=== PATIENT | male | born 1955 | race Two or more races ===

== ENCOUNTER 2016-12-29 23:56 | Inpatient (IN) | payer MEDICAID ==
[~2016-12-29] VITALS: Ht 182.9 cm; Wt 101.5 kg
[2016-12-30] MEDS ORDERED: ACETAMINOPHEN 325 MG TAB PO ONE (00:15)
[2016-12-30 00:27] LABS: Hematocrit 36.8 % (41.0-53.0); Hemoglobin 12.4 g/dL (13.5-17.5); Mean Corpuscular Hgb Conc. 33.8 g/dL (32.0-36.0); Mean Platelet Volume 7.2 fL (7.4-10.4); Platelet Count (auto) 348 10^3/uL (140-450); Red Cell Distribution Width 13.1 % (11.6-16.0); SUSPECT VIEW TRANSMISSION; White Blood Cell 12.8 10^3/uL (4.4-10.8)
[2016-12-30 00:34] LABS: Myelocytes % 0; Promyelocytes % 0; Reactive Lymphocytes 0
[2016-12-30 00:54] LABS: Albumin 2.3 g/dL (3.4-5.0); BUN/Creatinine Ratio 13.3; Calcium 8.1 mg/dL (8.5-10.1); Potassium 3.6 mmol/L (3.5-5.1)
[2016-12-30 01:00] LABS: Bilirubin, Total 0.8 mg/dL (0.2-1.0)
[2016-12-30 01:13] LABS: Metamyelocytes % 1
[2016-12-30 01:14] LABS: Large Platelets FEW; Platelet Estimate Adequa; RBC Morphology Normal
[2016-12-30 06:30] LABS: Urine Bilirubin Negative (Negative); Urine Color Yellow (Yellow); Urine Glucose Normal (Normal); Urine Mucus FEW (None Seen); Urine Nitrite Negative (Negative); Urine RBC 2 /hpf (0 - 3); Urine Urobilinogen Normal (Negative); Urine pH 6.5 (5.0-8.0)
[2016-12-30 06:31] LABS: Urine Blood 1+ /uL (Negative); Urine Ketone 1+ (Negative)
[2016-12-30] MEDS ORDERED: SODIUM CHLORIDE 0.9% 1,000 ML IV ONE (07:48)
[2016-12-30] MEDS ORDERED: LEVOFLOXACIN 750MG 150 ML IV ONE (08:00)
[2016-12-30] MEDS ORDERED: IPRATROPIUM BROM 0.5 MG/2.5ML INH SOL HHN ONE (08:00)
[2016-12-30] MEDS ORDERED: ALBUTEROL SULF 2.5 MG/0.5ML(0.5%) NEB SOLN HHN ONE (08:00)
[2016-12-30] MEDS ORDERED: methylPREDNISolone SOD SUCC 125 MG/2 ML VL IV ONE (08:00)
[2016-12-30] MEDS ORDERED: SODIUM CHLORIDE 0.9% 1,000 ML IV SCH (08:10)
[2016-12-30] MEDS ORDERED: NITROGLYCERIN 0.4 MG SL TAB SL PRN (08:15)
[2016-12-30] MEDS ORDERED: LORazepam 0.5 MG TAB PO PRN (08:15)
[2016-12-30] MEDS ORDERED: PROMETHAZINE HCL 25 MG/ML 1ML IV PRN (08:15)
[2016-12-30] MEDS ORDERED: ALBUTEROL SULF 2.5 MG/0.5ML(0.5%) NEB SOLN NEB PRN (08:15)
[2016-12-30] MEDS ORDERED: MORPHINE SULF INJ 2 MG/ML SYRINGE 1ML IV PRN ×2 (08:15)
[2016-12-30] MEDS ORDERED: LACTULOSE 20Gm/30ML SOLN PO PRN (08:15)
[2016-12-30] MEDS ORDERED: TEMAZEPAM 15 MG CAP PO PRN (08:15)
[2016-12-30] MEDS ORDERED: ACETAMINOPHEN 500 MG TAB PO PRN (08:15)
[2016-12-30 08:27] LABS: B-Type Natriuretic Peptide 23.86 pg/mL (0-100)
[2016-12-30 08:48] LABS: Temperature: 23.3 C (20.0-25.0)
[2016-12-30] MEDS: AZITHROMYCIN 500MG/D5W 250ML 250 ML IV SCH (10:00)
[2016-12-30] MEDS: ENOXAPARIN SOD 40 MG/0.4 ML SYRINGE SC SCH (10:00)
[2016-12-30] MEDS: SODIUM CHLORIDE 0.9% 1,000 ML IV SCH ×2 (10:06→19:00)
[2016-12-30] MEDS: HYDROcodone-ACET 5/325MG TAB PO PRN (11:04)
[2016-12-30] MEDS ORDERED: IBUP800T24 PO (11:29)
[2016-12-30] MEDS: IPRATROPIUM BROM 0.5 MG/2.5ML INH SOL NEB SCH ×2 (12:00→19:24)
[2016-12-30] MEDS: ALBUTEROL SULF 2.5 MG/0.5ML(0.5%) NEB SOLN NEB SCH ×2 (12:00→19:24)
[2016-12-30 14:10] VITALS: BP 125/63
[2016-12-30] MEDS: cefTRIAXone 1GM/50ML D5W 50 ML IV SCH (15:30)
[2016-12-30 17:00] VITALS: BP 144/90
[2016-12-30 20:34] VITALS: BP 144/90
[2016-12-30 22:00] VITALS: BP 132/82
[2016-12-31] MEDS: SODIUM CHLORIDE 0.9% 1,000 ML IV SCH ×3 (02:06→18:09)
[2016-12-31 05:00] VITALS: BP 118/70
[2016-12-31] MEDS: IPRATROPIUM BROM 0.5 MG/2.5ML INH SOL NEB SCH ×3 (05:51→18:35)
[2016-12-31] MEDS: ALBUTEROL SULF 2.5 MG/0.5ML(0.5%) NEB SOLN NEB SCH ×3 (05:52→18:35)
[2016-12-31 06:15] LABS: Basophils # (auto) 0 uL; Eosinophils # (auto) 0 uL; Hematocrit 34.9 % (41.0-53.0); Hemoglobin 12.1 g/dL (13.5-17.5); Lymphocytes # (auto) 1.4 uL; Lymphocytes % (auto) 8.7 % (10.0-50.0); Mean Corpuscular Hemoglobin 29.8 pg (28.0-32.0); Mean Corpuscular Hgb Conc. 34.8 g/dL (32.0-36.0); Mean Corpuscular Volume 85.6 fL (80.0-100.0); Mean Platelet Volume 7.7 fL (7.4-10.4); Monocytes # (auto) 0.9 uL; Monocytes % (auto) 5.5 % (0.0-12.0); Neutrophils # (auto) 13.4 uL; Neutrophils % (auto) 85.8 % (37.0-80.0); Platelet Count (auto) 396 10^3/uL (140-450); Red Cell Distribution Width 13.8 % (11.6-16.0); White Blood Cell 15.6 10^3/uL (4.4-10.8)
[2016-12-31 06:43] LABS: Albumin 2.1 g/dL (3.4-5.0); BUN/Creatinine Ratio 21.7; Bilirubin, Total 0.4 mg/dL (0.2-1.0); Calcium 8.4 mg/dL (8.5-10.1); Potassium 3.9 mmol/L (3.5-5.1); Total Protein 6.8 g/dL (6.4-8.2)
[2016-12-31 07:18] LABS: Temperature: 22.9 C (20.0-25.0)
[2016-12-31 08:00] VITALS: BP 118/70
[2016-12-31 09:00] VITALS: BP 114/72
[2016-12-31] MEDS: cefTRIAXone 1GM/50ML D5W 50 ML IV SCH (09:10)
[2016-12-31] MEDS: ENOXAPARIN SOD 40 MG/0.4 ML SYRINGE SC SCH (09:14)
[2016-12-31] MEDS: AZITHROMYCIN 500MG/D5W 250ML 250 ML IV SCH (09:48)
[2016-12-31] MEDS: DOXYCYCLINE HYC 100MG/250ML 250 ML IV SCH (11:18)
[2016-12-31 17:12] VITALS: BP 127/96
[2016-12-31] MEDS: BUDESONIDE (INHALATION) 0.5 MG/2 ML NEB NEB SCH (18:35)
[2016-12-31] MEDS: HYDROcodone-ACET 5/325MG TAB PO PRN (21:51)
[2016-12-31 22:07] VITALS: BP 124/75
[2017-01-01] MEDS: ALBUTEROL SULF 2.5 MG/0.5ML(0.5%) NEB SOLN NEB SCH ×4 (00:31→19:15)
[2017-01-01] MEDS: IPRATROPIUM BROM 0.5 MG/2.5ML INH SOL NEB SCH ×4 (00:31→19:15)
[2017-01-01] MEDS: DOXYCYCLINE HYC 100MG/250ML 250 ML IV SCH ×3 (00:56→23:11)
[2017-01-01] MEDS: SODIUM CHLORIDE 0.9% 1,000 ML IV SCH ×3 (02:06→18:06)
[2017-01-01 05:09] VITALS: BP 101/52
[2017-01-01 06:33] LABS: Albumin 2.1 g/dL (3.4-5.0); Calcium 8.3 mg/dL (8.5-10.1); Potassium 4.1 mmol/L (3.5-5.1)
[2017-01-01 06:35] LABS: BUN/Creatinine Ratio 19.3
[2017-01-01 06:37] LABS: Bilirubin, Total 0.4 mg/dL (0.2-1.0); Total Protein 6.4 g/dL (6.4-8.2)
[2017-01-01 06:51] LABS: Basophils # (auto) 0 uL; Basophils % (auto) 0.3 % (0.0-2.0); Eosinophils # (auto) 0.1 uL; Eosinophils % (auto) 0.4 % (0.0-7.0); Hematocrit 34.7 % (41.0-53.0); Hemoglobin 11.7 g/dL (13.5-17.5); Lymphocytes # (auto) 1.5 uL; Lymphocytes % (auto) 10.2 % (10.0-50.0); Mean Corpuscular Hemoglobin 29.6 pg (28.0-32.0); Mean Corpuscular Hgb Conc. 33.9 g/dL (32.0-36.0); Mean Corpuscular Volume 87.5 fL (80.0-100.0); Mean Platelet Volume 7.9 fL (7.4-10.4); Monocytes # (auto) 1.2 uL; Monocytes % (auto) 8.5 % (0.0-12.0); Neutrophils # (auto) 11.6 uL; Neutrophils % (auto) 80.6 % (37.0-80.0); Platelet Count (auto) 394 10^3/uL (140-450); Red Cell Distribution Width 13.9 % (11.6-16.0); White Blood Cell 14.4 10^3/uL (4.4-10.8)
[2017-01-01] MEDS: BUDESONIDE (INHALATION) 0.5 MG/2 ML NEB NEB SCH ×2 (07:00→19:15)
[2017-01-01 08:00] VITALS: BP 101/52
[2017-01-01 09:00] VITALS: BP 126/66
[2017-01-01] MEDS: cefTRIAXone 1GM/50ML D5W 50 ML IV SCH (09:14)
[2017-01-01] MEDS: ENOXAPARIN SOD 40 MG/0.4 ML SYRINGE SC SCH (09:17)
[2017-01-01 13:00] VITALS: BP 118/76
[2017-01-01] MEDS: HYDROcodone-ACET 5/325MG TAB PO PRN (16:37)
[2017-01-01 17:00] VITALS: BP 136/77
[2017-01-01 22:00] VITALS: BP 114/69
[2017-01-02] MEDS: SODIUM CHLORIDE 0.9% 1,000 ML IV SCH ×2 (02:23→09:21)
[2017-01-02 05:03] VITALS: BP 121/69
[2017-01-02] MEDS: IPRATROPIUM BROM 0.5 MG/2.5ML INH SOL NEB SCH ×3 (06:00→10:30)
[2017-01-02] MEDS: ALBUTEROL SULF 2.5 MG/0.5ML(0.5%) NEB SOLN NEB SCH ×3 (06:00→10:30)
[2017-01-02 08:00] VITALS: BP 121/69
[2017-01-02 09:00] VITALS: BP 124/64
[2017-01-02] MEDS: cefTRIAXone 1GM/50ML D5W 50 ML IV SCH (09:14)
[2017-01-02] MEDS: ENOXAPARIN SOD 40 MG/0.4 ML SYRINGE SC SCH (09:20)
[2017-01-02 09:35] VITALS: BP 121/69
[2017-01-02 10:19] VITALS: BP 124/64
[2017-01-02] MEDS: BUDESONIDE (INHALATION) 0.5 MG/2 ML NEB NEB SCH (10:31)
[2017-01-02] MEDS: DOXYCYCLINE HYC 100MG/250ML 250 ML IV SCH (11:35)
[2017-01-02 12:19] LABS: Allen Test Yes; Base Excess -0.5 mmol/L (-2.0-2.0); Blood 02Sat 85.8 % (96-100); Blood COHb 0.5 % (0.5-1.5); Blood MetHb 0.4 % (0.0-1.5); HCO3 22.5 mmol/L (22-26.0); HHb 14.1 % (0.0-5.0); MODE ROOM AIR; PCO2 32.2 mmHg (35.0-45.0); PCO2(T) 32.2 mmHg (35.0-45.0); PO2 51.8 mmHg (80.0-100.0); PO2(T) 51.8 mmHg (80.0-100.0); Room 0216T; Sample Type Arterial; pH 7.462 (7.350-7.450)
[2017-01-02 13:00] VITALS: BP 119/70
== END 2017-01-02 16:50 | disposition home or self-care (01) | DRG 139 ==
LOC: ER 23:56 → TELE 23:57 → TELE-E-ADS 12-30 10:29 → TELE-CENTR 12-30 13:27
PROVIDERS: ADMIT Internal Medicine; ATTEND Internal Medicine
DX: J18.9 Pneumonia, unspecified organism (principal); M62.82 Rhabdomyolysis; E46 Unspecified protein-calorie malnutrition; J44.0 Chronic obstructive pulmonary disease with (acute) lower respiratory infection; F41.9 Anxiety disorder, unspecified; E78.5 Hyperlipidemia, unspecified; Z82.49 Family history of ischemic heart disease and other diseases of the circulatory system; M19.90 Unspecified osteoarthritis, unspecified site; Z87.891 Personal history of nicotine dependence; Z68.30 Body mass index [BMI] 30.0-30.9, adult; D72.829 Elevated white blood cell count, unspecified
CPT/HCPCS: 36415; 36600; 71010; 71020; 80053; 80061; 81001; 82550; 82805; 83605; 83880; 84443; 84484; 85007; 85025; 85027; 87040; 87070; 87205; 93005; 93306; 94640; 96372; 96374; 96375; 99291; J0696; J1956; J3490

== ENCOUNTER 2017-01-10 01:01 | Inpatient (IN) | payer MEDICAID ==
[~2017-01-10] VITALS: Ht 182.9 cm; Wt 93.4 kg
[~2017-01-10 01:01] MED LIST: IBUP800T24 PO
[2017-01-10 01:32] LABS: Basophils # (auto) 0.1 uL; Basophils % (auto) 0.7 % (0.0-2.0); Eosinophils # (auto) 0.2 uL; Eosinophils % (auto) 1.2 % (0.0-7.0); Hemoglobin 13.3 g/dL (13.5-17.5); Lymphocytes # (auto) 1.6 uL; Lymphocytes % (auto) 8.6 % (10.0-50.0); Mean Corpuscular Hemoglobin 28.8 pg (28.0-32.0); Mean Corpuscular Hgb Conc. 33.2 g/dL (32.0-36.0); Mean Corpuscular Volume 86.8 fL (80.0-100.0); Mean Platelet Volume 7.9 fL (7.4-10.4); Monocytes # (auto) 0.9 uL; Monocytes % (auto) 4.9 % (0.0-12.0); Neutrophils # (auto) 15.2 uL; Neutrophils % (auto) 84.6 % (37.0-80.0); Platelet Count (auto) 386 10^3/uL (140-450); Red Cell Distribution Width 14.5 % (11.6-16.0)
[2017-01-10 02:06] LABS: Albumin 2.3 g/dL (3.4-5.0); BUN/Creatinine Ratio 17.3; Calcium 8.1 mg/dL (8.5-10.1); Potassium 3.8 mmol/L (3.5-5.1)
[2017-01-10 02:09] LABS: Bilirubin, Total 0.8 mg/dL (0.2-1.0)
[2017-01-10] MEDS ORDERED: PROMETHAZINE W/CODEINE 5 ML ORAL SYRUP PO ONE (02:30)
[2017-01-10] MEDS ORDERED: SODIUM CHLORIDE 0.9% 1,000 ML IV ONE ×2 (02:30→06:30)
[2017-01-10] MEDS ORDERED: ONDANSETRON HCL 4 MG/2 ML VIAL IV ONE (02:30)
[2017-01-10] MEDS ORDERED: LEVOFLOXACIN 750MG 150 ML IV ONE (02:30)
[2017-01-10 02:49] LABS: Base Excess -0.9 mmol/L (-2.0-2.0); Blood 02Sat 91.9 % (96-100); Blood COHb 0.4 % (0.5-1.5); Blood MetHb 0.4 % (0.0-1.5); HCO3 21.5 mmol/L (22-26.0); MODE NASAL CANNULA; O2Hb 91.2 % (94.0-97.0); PCO2 29.8 mmHg (35.0-45.0); PCO2(T) 29.8 mmHg (35.0-45.0); PO2 65.5 mmHg (80.0-100.0); PO2(T) 65.5 mmHg (80.0-100.0); Sample Type Arterial; pH 7.477 (7.350-7.450)
[2017-01-10] MEDS ORDERED: ACETAMINOPHEN 325 MG TAB PO PRN (06:30)
[2017-01-10] MEDS ORDERED: MORPHINE SULF INJ 2 MG/ML SYRINGE 1ML IV PRN (06:30)
[2017-01-10] MEDS ORDERED: NITROGLYCERIN 0.4 MG SL TAB SL PRN (06:30)
[2017-01-10] MEDS: cefTRIAXone 1GM/50ML D5W 50 ML IV SCH (07:42)
[2017-01-10] MEDS: methylPREDNISolone SOD SUCC 125 MG/2 ML VL IV SCH (07:42)
[2017-01-10] MEDS: ENOXAPARIN SOD 40 MG/0.4 ML SYRINGE SC SCH (10:00)
[2017-01-10] MEDS: IPRATROPIUM BROM 0.5 MG/2.5ML INH SOL NEB SCH ×4 (10:24→22:49)
[2017-01-10] MEDS: ALBUTEROL SULF 2.5 MG/0.5ML(0.5%) NEB SOLN NEB SCH ×4 (10:24→22:48)
[2017-01-10 11:04] VITALS: BP 112/67
[2017-01-10 17:22] VITALS: BP 114/67
[2017-01-10 21:58] VITALS: BP 128/60
[2017-01-11] MEDS: ALBUTEROL SULF 2.5 MG/0.5ML(0.5%) NEB SOLN NEB SCH ×6 (02:00→22:04)
[2017-01-11] MEDS: IPRATROPIUM BROM 0.5 MG/2.5ML INH SOL NEB SCH ×6 (02:00→22:04)
[2017-01-11] MEDS: LEVOFLOXACIN 750MG 150 ML IV SCH (02:38)
[2017-01-11 05:00] VITALS: BP 99/56
[2017-01-11 05:58] LABS: Basophils # (auto) 0 uL; Basophils % (auto) 0.2 % (0.0-2.0); Eosinophils # (auto) 0 uL; Hematocrit 33.3 % (41.0-53.0); Hemoglobin 11.1 g/dL (13.5-17.5); Lymphocytes # (auto) 1.4 uL; Lymphocytes % (auto) 8.4 % (10.0-50.0); Mean Corpuscular Hemoglobin 29.3 pg (28.0-32.0); Mean Corpuscular Hgb Conc. 33.5 g/dL (32.0-36.0); Mean Corpuscular Volume 87.7 fL (80.0-100.0); Monocytes # (auto) 1.3 uL; Monocytes % (auto) 7.4 % (0.0-12.0); Neutrophils # (auto) 14.3 uL; Platelet Count (auto) 365 10^3/uL (140-450); Red Cell Distribution Width 14.5 % (11.6-16.0); White Blood Cell 17.1 10^3/uL (4.4-10.8)
[2017-01-11 06:31] LABS: Albumin 2.1 g/dL (3.4-5.0); Calcium 8.3 mg/dL (8.5-10.1)
[2017-01-11] MEDS: cefTRIAXone 1GM/50ML D5W 50 ML IV SCH (06:31)
[2017-01-11] MEDS: methylPREDNISolone SOD SUCC 125 MG/2 ML VL IV SCH (06:31)
[2017-01-11 06:34] LABS: BUN/Creatinine Ratio 22.2
[2017-01-11 06:36] LABS: Bilirubin, Total 0.3 mg/dL (0.2-1.0); Total Protein 6.2 g/dL (6.4-8.2)
[2017-01-11 08:14] VITALS: BP 104/60
[2017-01-11] MEDS: ENOXAPARIN SOD 40 MG/0.4 ML SYRINGE SC SCH (09:41)
[2017-01-11 12:25] VITALS: BP 116/64
[2017-01-11 16:42] VITALS: BP 111/66
[2017-01-11 22:00] VITALS: BP 120/68
[2017-01-12] MEDS: IPRATROPIUM BROM 0.5 MG/2.5ML INH SOL NEB SCH ×3 (02:00→10:31)
[2017-01-12] MEDS: ALBUTEROL SULF 2.5 MG/0.5ML(0.5%) NEB SOLN NEB SCH ×3 (02:00→10:31)
[2017-01-12] MEDS: LEVOFLOXACIN 750MG 150 ML IV SCH (02:38)
[2017-01-12 05:00] VITALS: BP 104/57
[2017-01-12] MEDS: cefTRIAXone 1GM/50ML D5W 50 ML IV SCH (06:28)
[2017-01-12] MEDS: methylPREDNISolone SOD SUCC 125 MG/2 ML VL IV SCH (06:28)
[2017-01-12 08:20] VITALS: BP 103/61
== END 2017-01-12 19:27 | disposition home or self-care (01) | DRG 140 ==
LOC: EDBD 01:01 → ER 01:02 → TELE 01:03 → TELE-E-ADS 09:51 → TELE-WESTW 17:00
PROVIDERS: ADMIT Family Medicine; ATTEND Internal Medicine
DX: J44.0 Chronic obstructive pulmonary disease with (acute) lower respiratory infection (principal); J18.9 Pneumonia, unspecified organism; E46 Unspecified protein-calorie malnutrition; J44.1 Chronic obstructive pulmonary disease with (acute) exacerbation; E78.5 Hyperlipidemia, unspecified; F41.9 Anxiety disorder, unspecified; M19.90 Unspecified osteoarthritis, unspecified site; Z71.89 Other specified counseling; Z68.27 Body mass index [BMI] 27.0-27.9, adult
CPT/HCPCS: 36415; 36600; 71010; 80053; 82805; 83605; 85025; 87040; 87070; 87081; 87205; 93005; 94640; 96361; 96365; 96375; J0696; J1956; J2405

== ENCOUNTER 2017-02-21 04:46 | Emergency (ER) | payer MEDICAID ==
[~2017-02-21] VITALS: Ht 182.9 cm; Wt 90.3 kg
[2017-02-21 07:27] LABS: INR 1.02 (0.9-1.15); Partial Thromboplastin Time 28.9 sec (22.64-33.71); Prothrombin Time 11.1 sec (9.37-12.3)
[2017-02-21 07:38] LABS: Albumin 2.9 g/dL (3.4-5.0); BUN/Creatinine Ratio 16.1; Bilirubin, Total 0.4 mg/dL (0.2-1.0); Calcium 8.9 mg/dL (8.5-10.1); Potassium 3.4 mmol/L (3.5-5.1); Total Protein 7.6 g/dL (6.4-8.2)
[2017-02-21 07:53] LABS: Basophils # (auto) 0 uL; Basophils % (auto) 0.1 % (0.0-2.0); Eosinophils # (auto) 0.5 uL; Eosinophils % (auto) 4.8 % (0.0-7.0); Hemoglobin 11.5 g/dL (13.5-17.5); Lymphocytes # (auto) 1.2 uL; Lymphocytes % (auto) 10.8 % (10.0-50.0); Mean Corpuscular Hemoglobin 28.4 pg (28.0-32.0); Mean Corpuscular Hgb Conc. 33.7 g/dL (32.0-36.0); Mean Corpuscular Volume 84.5 fL (80.0-100.0); Monocytes # (auto) 0.7 uL; Monocytes % (auto) 6.5 % (0.0-12.0); Neutrophils # (auto) 8.8 uL; Neutrophils % (auto) 77.8 % (37.0-80.0); Platelet Count (auto) 302 10^3/uL (140-450); Red Cell Distribution Width 14.5 % (11.6-16.0); SUSPECT SEE PRINTOUT; White Blood Cell 11.2 10^3/uL (4.4-10.8)
[2017-02-21 08:40] VITALS: BP 115/87
== END 2017-02-21 08:46 | disposition home or self-care (01) ==
LOC: ER 04:46 → EDBD 04:46 → ER 08:46
DX: R04.0 Epistaxis (principal); M19.90 Unspecified osteoarthritis, unspecified site; J44.9 Chronic obstructive pulmonary disease, unspecified; E78.5 Hyperlipidemia, unspecified
CPT/HCPCS: 30901; 36415; 80053; 85025; 85610; 85730

== ENCOUNTER 2017-02-23 09:27 | Emergency (ER) | payer MEDICAID ==
[~2017-02-23] VITALS: Ht 182.9 cm; Wt 91.4 kg
[2017-02-23 09:29] VITALS: BP 113/69
== END 2017-02-23 09:57 | disposition home or self-care (01) ==
LOC: ER 09:27
DX: J44.9 Chronic obstructive pulmonary disease, unspecified (principal); M19.90 Unspecified osteoarthritis, unspecified site; Z48.00 Encounter for change or removal of nonsurgical wound dressing; Z79.899 Other long term (current) drug therapy; E78.5 Hyperlipidemia, unspecified

== ENCOUNTER 2024-03-08 19:54 | Emergency (ER) | payer OTHER, MEDICAID ==
[~2024-03-08] VITALS: Ht 182.9 cm; Wt 97.6 kg
[~2024-03-08 19:54] MED LIST changes: +IBUP-1456 PO; -IBUP800T24 PO
[2024-03-08 21:16] LABS: COVID19 ANTIGEN SOFIA FIA POSITIVE (NEGATIVE); Rapid Influenza A Negative (Negative); Rapid Influenza B Negative (Negative)
[2024-03-08 21:57] VITALS: BP 142/75; PULSE 79; RESP 18; TEMP 99.5; O2SAT 96
[2024-03-08] MEDS ORDERED: AZITTAB PO (22:10)
[2024-03-08] MEDS ORDERED: OSEL75CA5 PO (22:10)
== END 2024-03-08 23:01 | disposition home or self-care (01) ==
LOC: ER 19:54
DX: U07.1 COVID-19 (principal); J10.1 Influenza due to other identified influenza virus with other respiratory manifestations; F41.9 Anxiety disorder, unspecified; M19.90 Unspecified osteoarthritis, unspecified site; J44.9 Chronic obstructive pulmonary disease, unspecified; E78.5 Hyperlipidemia, unspecified; Z79.899 Other long term (current) drug therapy
CPT/HCPCS: 36415; 87426; 87804